=== PATIENT | female | born 1985 | race Caucasian/White ===

== ENCOUNTER 2017-01-25 23:28 | Emergency (ER) | payer OTHER ==
[~2017-01-25] VITALS: Ht 170.2 cm; Wt 82.0 kg
[2017-01-25 23:32] VITALS: BP 157/99
[2017-01-26] MEDS ORDERED: SODIUM CHLORIDE FLUSH 10ML SYR IVF ONE
[2017-01-26] MEDS ORDERED: ONDANSETRON 2MG/ML, 2ML IVPush ONE
[2017-01-26] MEDS ORDERED: KETOROLAC 30 MG/1 ML ONE (00:11)
[2017-01-26] MEDS ORDERED: ONDANSETRON 2MG/ML, 2ML ONE (00:12)
[2017-01-26 00:13] LABS: HEMOGLOBIN 15.5 g/dL (11.7-16.4)
[2017-01-26 00:28] LABS: ASPARTATE AMINO TRANSFERASE 15 U/L (15-37); BLOOD UREA NITROGEN 16 mg/dL (7-18)
[2017-01-26] MEDS ORDERED: KETOROLAC 30 MG/1 ML IVPush ONE (00:30)
[2017-01-26] MEDS ORDERED: SODIUM CHLORIDE 0.9% 1,000ML IVBOLUS ONE ×2 (01:30)
== END 2017-01-26 02:45 | disposition home or self-care (01) ==
LOC: ED 23:59
DX: R10.13 Epigastric pain (principal); R11.2 Nausea with vomiting, unspecified; R00.0 Tachycardia, unspecified; G43.909 Migraine, unspecified, not intractable, without status migrainosus; Z79.899 Other long term (current) drug therapy; Z98.890 Other specified postprocedural states
CPT/HCPCS: 36415; 80053; 81003; 83690; 84703; 85025; 96361; 96374; 96375; 99284; J1885; J2405; J7030

== ENCOUNTER 2017-02-10 13:30 | Day surgery (SDC) | payer OTHER ==
[~2017-02-10] VITALS: Ht 170.2 cm; Wt 85.5 kg
[2017-02-10] MEDS ORDERED: SODIUM CHLORIDE 0.9% 1,000 ML IV ONE (13:56)
[2017-02-10] MEDS ORDERED: SODIUM CHLORIDE 0.9% 1,000ML IVBOLUS ONE ×2 (14:00→16:30)
[2017-02-10] MEDS ORDERED: SODIUM CHLORIDE FLUSH 10ML SYR IVF ONE (14:00)
[2017-02-10] MEDS ORDERED: DIPHENHYDRAMINE 50 MG/ML, 1ML IVPush ONE (14:00)
[2017-02-10] MEDS ORDERED: DIPHENHYDRAMINE 50 MG/ML, 1ML ONE (14:03)
[2017-02-10 14:10] LABS: HEMOGLOBIN 14.8 g/dL (11.7-16.4)
[2017-02-10 14:21] LABS: ASPARTATE AMINO TRANSFERASE 102 U/L (15-37); BLOOD UREA NITROGEN 7 mg/dL (7-18)
[2017-02-10] MEDS ORDERED: ONDANSETRON 2MG/ML, 2ML ONE ×2 (15:47→16:34)
[2017-02-10] MEDS ORDERED: MORPHINE SULFATE 4 MG/ML, 1ML ONE (15:47)
[2017-02-10] MEDS ORDERED: morphine SULFATE 10 MG/ML, 1ML IVPush PRN (16:00)
[2017-02-10] MEDS ORDERED: ONDANSETRON 2MG/ML, 2ML IVPush ONE (16:00)
[2017-02-10 16:19] VITALS: BP 141/95
[2017-02-10] MEDS ORDERED: BUPIVACAINE/PF-EPI 0.25% 1:200K ONE ×2 (16:26→16:55)
[2017-02-10] MEDS ORDERED: CEFOTETAN PMX 1GM/50ML 50 ML IV ONE (16:30)
[2017-02-10] MEDS ORDERED: ROCURONIUM 10 MG/ML ONE (16:34)
[2017-02-10] MEDS ORDERED: DEXAMETHASONE 4 MG/ML, 1ML ONE (16:34)
[2017-02-10] MEDS ORDERED: PROPOFOL 10 MG/ML, 20ML ONE (16:34)
[2017-02-10] MEDS ORDERED: CEFOTETAN 1 GM ONE (16:34)
[2017-02-10] MEDS ORDERED: SUCCINYLCHOLINE 20 MG/ML, 10ML ONE (16:34)
[2017-02-10] MEDS ORDERED: MIDAZOLAM 1 MG/ML, 2ML ONE ×2 (16:35→17:29)
[2017-02-10] MEDS ORDERED: FENTANYL PF 250 MCG/5ML ONE (16:35)
[2017-02-10] MEDS ORDERED: FENTANYL PF 100 MCG/2ML ONE (17:29)
[2017-02-10] MEDS ORDERED: OXYcodone 5 MG/5 ML ORAL.SOL UDC ONE (17:29)
[2017-02-10] MEDS ORDERED: ONDANSETRON 2MG/ML, 2ML IVPush PRN (17:30)
[2017-02-10] MEDS ORDERED: hydrALAzine 20 MG/ML, 1ML IV PRN (17:30)
[2017-02-10] MEDS ORDERED: LABETALOL 5MG/ML, 20ML IV PRN (17:30)
[2017-02-10] MEDS ORDERED: ACETAMINOPHEN 325 MG TABLET PO PRN (17:30)
[2017-02-10] MEDS ORDERED: OXYcodone 5 MG/5 ML ORAL.SOL UDC PO PRN (17:30)
[2017-02-10] MEDS ORDERED: HYDROmorphone 1 MG/ML, 1ML IV PRN (17:30)
[2017-02-10] MEDS ORDERED: METOCLOPRAMIDE 5 MG/ML, 2ML IV PRN (17:30)
[2017-02-10] MEDS: FENTANYL PF 100 MCG/2ML IV PRN ×3 (17:33→18:00)
[2017-02-10] MEDS ORDERED: ACETAMINOPHEN 325 MG TABLET ONE (17:38)
[2017-02-10] MEDS ORDERED: ACETAMINOPHEN 650 MG/20.3 ML UDC ONE (17:38)
[2017-02-10] MEDS ORDERED: MIDAZOLAM 1 MG/ML, 2ML IVPush PRN (18:00)
[2017-02-10] MEDS ORDERED: HYDROmorphone 2 MG/ML, 1ML ONE (18:20)
== END 2017-02-10 19:45 | disposition home or self-care (01) ==
LOC: OR 16:16 → UNDOADMIN 16:25 → OUT 16:25 → EDIP 16:25 → UNDODISIN 19:45 → OUT 19:45
PROVIDERS: ATTEND Surgery
DX: K81.0 Acute cholecystitis (principal); E66.9 Obesity, unspecified; Z68.29 Body mass index [BMI] 29.0-29.9, adult; Z82.49 Family history of ischemic heart disease and other diseases of the circulatory system; G43.909 Migraine, unspecified, not intractable, without status migrainosus; Z79.899 Other long term (current) drug therapy
CPT/HCPCS: 36415; 47562; 74022; 76700; 80053; 81001; 83690; 84703; 85025; 87077; 87086; 88304; 93005; 96361; 96374; 96375; 99285; A4649; J0330; J1100; J1170; J1200; J2250; J2270; J2405; J2704; J3010; J7030; 87186; S0074

== ENCOUNTER 2020-11-20 09:56 | Outpatient (CLI) | payer OTHER ==
[~2020-11-20 09:56] MED LIST: CIPR500S2 PO; DESO1TAB4 PO; SUMA100T3 PO
== END 2020-11-20 23:59 | disposition home or self-care (01) ==
LOC: OUT 09:56
PROVIDERS: ATTEND Nurse Practitioner Primary Care
DX: Z20.828 Contact with and (suspected) exposure to other viral communicable diseases (principal)
CPT/HCPCS: 87635

== ENCOUNTER 2020-12-03 09:25 | Inpatient (IN) | payer OTHER ==
[~2020-12-03] VITALS: Ht 170.2 cm; Wt 101.0 kg
[2020-12-03] MEDS ORDERED: OXYTOCIN 30U/ 0.9% NaCL 500ML 500 ML IV ONE (10:00)
[2020-12-03] MEDS ORDERED: FENTANYL PF 100 MCG/2ML IV PRN (10:00)
[2020-12-03] MEDS ORDERED: TERBUTALINE 1 MG/ML, 1ML IVPush PRN (10:00)
[2020-12-03] MEDS ORDERED: D5%-LACTATED RINGERS 1,000 ML IV SCH (10:00)
[2020-12-03] MEDS ORDERED: FENTANYL PF 100 MCG/2ML IVPush PRN (10:00)
[2020-12-03] MEDS ORDERED: TERBUTALINE 1 MG/ML, 1ML SQ PRN (10:00)
[2020-12-03] MEDS ORDERED: ONDANSETRON 2MG/ML, 2ML IVPush PRN (10:00)
[2020-12-03] MEDS ORDERED: CALCIUM CARBONATE 500 MG TAB.CHEW PO PRN (10:00)
[2020-12-03] MEDS: LACTATED RINGERS 1,000 ML IV SCH ×3 (10:10→12:52)
[2020-12-03] MEDS ORDERED: PLEASE ENTER HEIGHT AND WEIGHT MC SCH (10:30)
[2020-12-03 10:34] LABS: BASOPHILS % (AUTO) 1 % (0-1); EOSINOPHILS % (AUTO) 0 % (1-7); LYMPHOCYTES % (AUTO) 23 % (22-44); MEAN CORPUSCULAR HEMOGLOBIN 31.2 pg (27.0-34.8); MEAN CORPUSCULAR HGB CONC 34.6 g/dL (32.4-35.8); MONOCYTES % (AUTO) 8 % (2-9); NEUTROPHILS % (AUTO) 68 % (42-75); PLATELET COUNT 175 x10^3/uL (130-400); RED BLOOD COUNT 4.45 x10^6/uL (3.82-5.3); RED CELL DISTRIBUTION WIDTH 13.9 % (9.6-15.2)
[2020-12-03 10:39] LABS: MD NO
[2020-12-03] MEDS ORDERED: LIDOCAINE 1%, 20ML ONE (11:04)
[2020-12-03] MEDS ORDERED: NEWBORN KIT ONE (11:04)
[2020-12-03] MEDS ORDERED: OXYTOCIN 30U/ 0.9% NaCL 500ML 500 ML ONE (11:04)
[2020-12-03] MEDS ORDERED: FENTANYL/BUPIV./NS/PF 250 ML EPIDCONT SCH (13:00)
[2020-12-03] MEDS ORDERED: NALOXONE 0.4 MG/ML, 1ML IVPush PRN (13:00)
[2020-12-03] MEDS ORDERED: EPHEDRINE 50 MG/ML, 1ML IVPush PRN (13:00)
[2020-12-03] MEDS ORDERED: LACTATED RINGERS 1,000 ML IV SCH (13:00)
[2020-12-03] MEDS ORDERED: LACTATED RINGERS 1,000 ML IVBOLUS PRN (13:00)
[2020-12-03] MEDS ORDERED: FENTANYL/BUPIV./NS/PF 250 ML EPIDCONT ONE (13:01)
[2020-12-03] MEDS ORDERED: BUPIVACAINE 0.25% ONE (13:01)
[2020-12-03] MEDS ORDERED: LIDOCAINE/PF 1.5% EPI 1:200K, 10 ML ONE (13:02)
[2020-12-04] MEDS ORDERED: ACETAMINOPHEN 325 MG TABLET ONE (01:27)
[2020-12-04] MEDS ORDERED: AZITHROMYCIN 500 MG in SODIUM CHLORIDE 0.9% 250 ML IV ONE (01:30)
[2020-12-04] MEDS ORDERED: AMPICILLIN 2 GM in SODIUM CHLORIDE 0.9% 100 ML IV ONE (01:30)
[2020-12-04] MEDS ORDERED: GENTAMICIN 400 MG in SODIUM CHLORIDE 0.9% 100 ML IV SCH (02:00)
[2020-12-04] MEDS ORDERED: METOCLOPRAMIDE 5 MG/ML, 2ML ONE ×2 (02:13→02:28)
[2020-12-04] MEDS ORDERED: SODIUM CITRATE/CITRIC ACID 15 ML UDC ONE ×2 (02:14)
[2020-12-04] MEDS ORDERED: EPHEDRINE 50 MG/ML, 1ML ONE (02:20)
[2020-12-04] MEDS ORDERED: KETOROLAC 30 MG/1 ML ONE ×2 (02:20→02:28)
[2020-12-04] MEDS ORDERED: ONDANSETRON 2MG/ML, 2ML ONE (02:20)
[2020-12-04] MEDS ORDERED: PROPOFOL 10 MG/ML, 20ML ONE (02:20)
[2020-12-04] MEDS ORDERED: SUCCINYLCHOLINE 20 MG/ML, 10ML ONE (02:20)
[2020-12-04] MEDS ORDERED: CEFAZOLIN 1,000 MG ONE (02:20)
[2020-12-04] MEDS ORDERED: DEXAMETHASONE 4 MG/ML, 1ML ONE (02:20)
[2020-12-04] MEDS ORDERED: OXYTOCIN 10 UNITS/ML, 1ML ONE (02:20)
[2020-12-04] MEDS ORDERED: PHENYLEPHRINE 10 MG/ML ONE (02:20)
[2020-12-04] MEDS ORDERED: FENTANYL PF 100 MCG/2ML ONE ×2 (02:21)
[2020-12-04] MEDS ORDERED: SODIUM CITRATE/CITRIC ACID 30 ML UDC ONE (02:28)
[2020-12-04] MEDS ORDERED: PROMETHAZINE 25 MG/ML, 1ML IV PRN (02:30)
[2020-12-04] MEDS ORDERED: HYDROmorphone 2 MG/ML, 1ML IVPush PRN (02:30)
[2020-12-04] MEDS ORDERED: FENTANYL PF 100 MCG/2ML IV PRN (02:30)
[2020-12-04] MEDS ORDERED: METOPROLOL 1 MG/ML, 5ML IV PRN (02:30)
[2020-12-04] MEDS ORDERED: LABETALOL 5MG/ML, 20ML IV PRN (02:30)
[2020-12-04] MEDS ORDERED: hydrALAzine 20 MG/ML, 1ML IV PRN (02:30)
[2020-12-04] MEDS ORDERED: HYDROcodone/APAP 7.5-325MG/15ML UDC PO PRN (02:30)
[2020-12-04] MEDS ORDERED: ONDANSETRON 2MG/ML, 2ML IVPush PRN (02:30)
[2020-12-04] MEDS ORDERED: MIDAZOLAM 1 MG/ML, 2ML IV PRN (02:30)
[2020-12-04] MEDS ORDERED: MEPERIDINE/PF 25MG/0.5ML IVPush PRN (02:30)
[2020-12-04] MEDS ORDERED: OXYcodone 5 MG/5 ML ORAL.SOL UDC PO PRN (02:30)
[2020-12-04] MEDS ORDERED: EPHEDRINE 50 MG/ML, 1ML IVPush PRN (02:30)
[2020-12-04] MEDS ORDERED: ALBUTEROL SULFATE 2.5 MG/3 ML NPPB PRN (02:30)
[2020-12-04] MEDS ORDERED: morphine SULFATE/PF 0.5 MG/ML, 10ML ONE (02:56)
[2020-12-04] MEDS ORDERED: HYDROmorphone 2 MG/ML, 1ML ONE (02:56)
[2020-12-04] MEDS ORDERED: ONDANSETRON 2MG/ML, 2ML IV PRN (03:30)
[2020-12-04] MEDS ORDERED: ACETAMINOPHEN 325 MG TABLET PO PRN (03:30)
[2020-12-04] MEDS ORDERED: KETOROLAC 30 MG/1 ML IV PRN (03:30)
[2020-12-04] MEDS: OXYTOCIN 30U/ 0.9% NaCL 500ML 500 ML IV SCH ×3 (03:30→23:30)
[2020-12-04] MEDS ORDERED: SIMETHICONE 80 MG CHEW TAB PO PRN (03:30)
[2020-12-04] MEDS ORDERED: MEPERIDINE/PF 50 MG/ML IVPush PRN (03:30)
[2020-12-04] MEDS ORDERED: OXYcodone/APAP 5/325MG TABLET PO PRN ×2 (03:30)
[2020-12-04] MEDS ORDERED: METOCLOPRAMIDE 5 MG/ML, 2ML IV PRN (03:30)
[2020-12-04] MEDS: LACTATED RINGERS 1,000 ML IV SCH ×6 (03:30→23:30)
[2020-12-04] MEDS ORDERED: morphine SULFATE 10 MG/ML, 1ML IVPush PRN (03:30)
[2020-12-04] MEDS ORDERED: IBUPROFEN 600 MG TABLET PO PRN (03:30)
[2020-12-04] MEDS ORDERED: METHYLERGONOVINE 0.2 MG/ML IM PRN (03:30)
[2020-12-04] MEDS ORDERED: MISOPROSTOL 200 MCG TABLET PR PRN (03:30)
[2020-12-04 05:20] VITALS: BP 116/69
[2020-12-04 07:52] VITALS: BP 126/79
[2020-12-04] MEDS: PRENATAL VIT/IRON/FA 1 EACH TABLET PO SCH (09:01)
[2020-12-04] MEDS: DOCUSATE 100 MG CAPSULE PO PRN (09:01)
[2020-12-04 12:05] VITALS: BP 124/75
[2020-12-04 15:58] VITALS: BP 111/67
[2020-12-04 19:45] VITALS: BP 117/76
[2020-12-05 00:15] VITALS: BP 101/66
[2020-12-05] MEDS: KETOROLAC 30 MG/1 ML IV SCH ×4 (03:21→21:58)
[2020-12-05] MEDS: LACTATED RINGERS 1,000 ML IV SCH ×5 (03:30→19:30)
[2020-12-05 08:55] VITALS: BP 123/81
[2020-12-05] MEDS: DOCUSATE 100 MG CAPSULE PO PRN ×2 (09:09→21:58)
[2020-12-05] MEDS: PRENATAL VIT/IRON/FA 1 EACH TABLET PO SCH (09:09)
[2020-12-05 09:18] LABS: BASOPHILS % (AUTO) 1 % (0-1); EOSINOPHILS % (AUTO) 1 % (1-7); LYMPHOCYTES % (AUTO) 19 % (22-44); MEAN CORPUSCULAR HEMOGLOBIN 31.1 pg (27.0-34.8); MEAN PLATELET VOLUME 8.7 fL (7.4-10.4); MONOCYTES % (AUTO) 6 % (2-9); NEUTROPHILS % (AUTO) 73 % (42-75); PLATELET COUNT 173 x10^3/uL (130-400); RED BLOOD COUNT 3.68 x10^6/uL (3.82-5.3); RED CELL DISTRIBUTION WIDTH 14.5 % (9.6-15.2)
[2020-12-05 09:19] LABS: MD NO
[2020-12-05] MEDS: OXYTOCIN 30U/ 0.9% NaCL 500ML 500 ML IV SCH ×2 (09:30→19:30)
[2020-12-05 20:15] VITALS: BP 133/83
[2020-12-06] MEDS: LACTATED RINGERS 1,000 ML IV SCH ×2 (03:30→05:30)
[2020-12-06] MEDS ORDERED: KETOROLAC 30 MG/1 ML ONE (04:04)
[2020-12-06] MEDS: KETOROLAC 30 MG/1 ML IV SCH (04:09)
[2020-12-06] MEDS: OXYTOCIN 30U/ 0.9% NaCL 500ML 500 ML IV SCH (05:30)
[2020-12-06 08:46] VITALS: BP 127/74
[2020-12-06] MEDS: DOCUSATE 100 MG CAPSULE PO PRN (09:03)
[2020-12-06] MEDS: PRENATAL VIT/IRON/FA 1 EACH TABLET PO SCH (09:03)
== END 2020-12-06 14:40 | disposition home or self-care (01) | DRG 786 ==
LOC: LDOP 09:25 → LDIP 09:56 → 2NW 12-04 05:05
PROVIDERS: ADMIT Student in an Organized Health Care Education/Training Program; ATTEND Student in an Organized Health Care Education/Training Program
PROC: 10D00Z1 Extraction of Products of Conception, Low, Open Approach (ICD-10-PCS; principal; 2020-12-04)
DX: O48.0 Post-term pregnancy (principal); O41.1230 Chorioamnionitis, third trimester, not applicable or unspecified; O77.0 Labor and delivery complicated by meconium in amniotic fluid; O62.0 Primary inadequate contractions; O32.2XX0 Maternal care for transverse and oblique lie, not applicable or unspecified; Z3A.40 40 weeks gestation of pregnancy; Z37.0 Single live birth; Z20.822 Contact with and (suspected) exposure to COVID-19
CPT/HCPCS: 36415; 85025; 86592; 86850; 86900; 87635; G0378; J0290; J0690; J1100; J1170; J1885; J2274; J2405; J2704; J3010; J0330; J1580; J2370; J2590; J2765; J7120